=== PATIENT | male | born 1935 | race Caucasian/White ===

== ENCOUNTER 2017-06-24 10:56 | Emergency (ER) | payer OTHER, BC, MEDICARE ==
[2017-06-24] MEDS: predniSONE 20 MG TAB PO (12:51)
[2017-06-24] MEDS: ACETAMINOPH W/CODEINE #3 TAB UD PO (12:51)
== END 2017-06-24 12:55 | disposition home or self-care (01) ==
LOC: M ED 10:56
DX: R22.43 Localized swelling, mass and lump, lower limb, bilateral (principal); E78.5 Hyperlipidemia, unspecified; M19.90 Unspecified osteoarthritis, unspecified site; Z88.8 Allergy status to other drugs, medicaments and biological substances
CPT/HCPCS: 99282

== ENCOUNTER → 2018-11-20 | Outpatient (CLI) | payer OTHER ==
[~2018-11-20] MED LIST: ACET-716 PO; CAPS0.1C2 EX; PRED20TA PO; SIMV20TA2; TRAM50TA2
[2018-11-20 09:58] LABS: HEMATOCRIT 39.6 % (42.0-52.0); HEMOGLOBIN 12.7 g/dl (13.5-17.5); MEAN CORPUSCULAR HEMOGLOBIN 29.5 pg (27.0-33.0); MEAN CORPUSCULAR HGB CONC 32.1 g/dl (32.0-36.5); MEAN CORPUSCULAR VOLUME 91.9 fl (80.0-96.0); PLATELET COUNT, AUTOMATED 216 10^3/uL (150-450); RED BLOOD COUNT 4.31 10^6/uL (4.30-6.10)
--- NOTE | 2018-11-20 10:04 | REP ---
Two-view chest: 11/20/2018. Indication: Preoperative assessment. Comparison: None. Findings: Lungs are clear. There is no significant pleural effusion or pneumothorax. Cardiac silhouette is within normal limits. Degenerative sequelae of the thoracic spine are noted. 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 Impression: Clear lungs. Electronically Signed by Dorian Mejia DO 11/20/2018 09:56 A
[2018-11-20 10:11] LABS: INR 1.03; PROTHROMBIN TIME 13.2 SECONDS (11.8-14.0)
[2018-11-20 10:29] LABS: ERYTHROCYTE SEDIMENTATION RATE 22 mm/hr (0-20)
[2018-11-20 10:40] LABS: ALBUMIN 3.6 GM/DL (3.2-5.2); BILIRUBIN,TOTAL 0.7 MG/DL (0.2-1.0); CALCIUM LEVEL 8.8 MG/DL (8.8-10.2); CREATININE FOR GFR 1.54 MG/DL (0.70-1.30); GLOMERULAR FILTRATION RATE 46.4 (>35); POTASSIUM SERUM 4.2 MEQ/L (3.5-5.1); TOTAL PROTEIN 6.8 GM/DL (6.4-8.2)
--- NOTE | 2018-11-20 12:06 | ECGEPIP ---
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
== END ==
LOC: M LAB 09:00
PROVIDERS: ATTEND Orthopaedic Surgery
DX: M13.851 Other specified arthritis, right hip (principal); Z79.891 Long term (current) use of opiate analgesic; Z79.899 Other long term (current) drug therapy

== ENCOUNTER 2018-12-11 08:20 | Inpatient (IN) | payer OTHER ==
--- NOTE | 2018-12-09 16:44 | HPE ---
DATE OF ADMISSION: 12/11/2018 CHIEF COMPLAINT: Right hip pain. HISTORY OF PRESENT ILLNESS: Mr. Dumont is a pleasant 83-year-old male with progressively worsening right hip pain and stiffness. He has failed to improve with conservative treatment. He has elected for surgery for his continued symptoms. He has pain with weightbearing activities and his activities of daily living. 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 He has consented for a right total hip arthroplasty by Dr. Ean Armendariz. Medical optimization was performed by Dr. Alcala's office. ALLERGIES: Aspirin. CURRENT MEDICATIONS: Simvastatin 20 mg super B complex, move free supplement and Co-Q 10. PAST MEDICAL HISTORY: High cholesterol. PAST SURGICAL HISTORY: None. SOCIAL HISTORY: This gentleman is retired and does not smoke and occasionally drinks alcohol. FAMILY HISTORY: Non-contributory. REVIEW OF SYSTEM: This patient denies chest pain, heart palpitations, cough, wheezing, difficulty breathing and shortness of breath. He denies abdominal pain, nausea, vomiting, diarrhea or constipation. He denies recent upper respiratory infection or urinary tract infection symptoms. He does complain of persistent pain in the right hip. PHYSICAL EXAMINATION: GENERAL: He is a well nourished, well developed in no acute distress alert male patient. He ambulates with a moderate limp favoring the right lower extremity. He is not using assistive devices. VITAL SIGNS: 69 inches tall. Weight 219 pounds with a temperature of 98.6. Blood pressure 170/77, respirations 18 and heart rate 83. NECK: Supple without adenopathy or jugular venous distension. LUNGS: Clear to auscultation without rales or wheeze throughout. Heart regular rate and rhythm. ABDOMEN: Bowel sounds were present. EXTREMITIES: Examination of the hip revealed intact skin. He had minimal internal external rotation on exam due to pain and stiffness. The limb is neurovascularly intact. LABORATORY DATA: EKG showed sinus rhythm with first degree AV block at 75 beats per minute. Chest x-ray showed no acute cardiopulmonary disease processes. ProTime was 13.2, INR 1.03, CBC showed a hemoglobin of 12.7 and hematocrit 39.6, otherwise within normal limits with a SED rate of 22, glucose 112, BUN 26, creatinine 1.54 for a GFR of 46.4, sodium 141, potassium 4.2. IMPRESSION: Symptomatic osteoarthritis of the right hip. PLAN: Consented for a right total hip arthroplasty by Dr. Ean Armendariz.
[~2018-12-11] VITALS: Ht 175.3 cm; Wt 105.2 kg
[2018-12-11] MEDS: ceFAZolin SOD 2 GM in IV 1 EA IV SCH ×3 (06:00→18:24)
[~2018-12-11 08:20] MED LIST changes: +ACETAMINOPHEN 500 MG TAB PO ONE; +B COTAB3 PO; +COQ-100C5 PO; +LR 1,000 ML IV ONE; +MOVE1TAB PO; +TYLE650T35 PO; +ZOCO20TA PO; +ceFAZolin SOD 2 GM in IV 1 EA IV ONE
[2018-12-11] MEDS ORDERED: fentaNYL 100 MCG/2 ML INJECTION (J3010) As Ordered ONE (10:39)
[2018-12-11] MEDS ORDERED: PROPOFOL 200 MG/20 ML VIAL As Ordered ONE (10:39)
[2018-12-11] MEDS ORDERED: MIDAZOLAM INJ 2 MG/2 ML VIAL (J2250) As Ordered ONE (10:39)
[2018-12-11] MEDS ORDERED: dexameTHASONE 4 MG/ML 1ML VIAL (J1100) As Ordered ONE (10:39)
[2018-12-11] MEDS ORDERED: ONDANSETRON 4MG/2ML VIAL (J2405) As Ordered ONE (10:39)
[2018-12-11] MEDS ORDERED: BUPIVACAINE/DEXTROSE 0.75% 2 ML AMP As Ordered ONE (10:47)
[2018-12-11] MEDS ORDERED: ceFAZolin 1GM INJ (J0690 PER 500MG) As Ordered ONE (12:04)
[2018-12-11] MEDS ORDERED: EPINEPHrine INJ 1 MG/ML 1ML AMP As Ordered ONE (12:16)
[2018-12-11] MEDS ORDERED: ePHEDrine SULFATE 25 MG/5 ML(5MG/ML) SYRINGE As Ordered ONE (13:47)
[2018-12-11] MEDS ORDERED: PHENYLephrine HCL 500 MCG/5 ML (100MCG/ML) SYRINGE (J2370) As Ordered ONE (13:47)
[2018-12-11] MEDS ORDERED: GLYCOPYRROLATE INJ 0.2 MG/ML 2 ML VIAL As Ordered ONE (13:50)
[2018-12-11] MEDS ORDERED: LR 1,000 ML IV SCH ×2 (15:00)
[2018-12-11] MEDS ORDERED: ONDANSETRON 4MG/2ML VIAL (J2405) IV PRN (15:00)
[2018-12-11] MEDS ORDERED: ACETAMINOPHEN TAB 650MG DOSE (2X325MG) PO PRN (15:00)
[2018-12-11] MEDS ORDERED: HYDROmorphone HCL 2 MG/ML 1ML VIAL (J1170) IV PRN ×2 (15:00)
[2018-12-11] MEDS ORDERED: FLEET ENEMA PR PRN (15:00)
[2018-12-11] MEDS ORDERED: NORCO, ANEXSIA 5/325MG TABLET (HYDROcodone/ACETAMINOPHEN) As Ordered ONE (15:20)
--- NOTE | 2018-12-11 15:24 | CR ---
DATE OF CONSULTATION: 12/11/2018 PRIMARY CARE PROVIDER: Dr. Gorge Alcala This is a medical evaluation of Berto Dumont. He is an 83-year-old who underwent right total hip today. He has a past medical history of hyperlipidemia. He takes Simvastatin 20 mg daily. He had rheumatic fever in 1957 and he has been very well otherwise. Immunizations are up to date, including both Pneumovax. SURGICAL HISTORY: Right and left hand abscess, right carpal tunnel in 2014. SOCIAL HISTORY: , nonsmoker. FAMILY HISTORY: Mother had breast cancer. Daughter had breast cancer. Sister with breast cancer. MEDICATIONS: - Simvastatin 20 mg daily - tramadol - Tylenol with codeine for pain - Osteo BiFlex ALLERGIES: ASPIRIN. REVIEW OF SYSTEMS: No chest pain, shortness of breath, palpitations, epistaxis. PHYSICAL EXAMINATION: VITAL SIGNS: Per flow sheet. Blood pressure currently 126/64, pulse 60, 97% oxygen saturation. He is alert, conversant and in no distress. LUNGS: Clear. HEART: Regular rhythm. ABDOMEN: Soft, nontender. EXTREMITIES: No peripheral edema. Normal strength in the arms. Alert and conversant. IMPRESSION: 1. Hyperlipidemia. Continue simvastatin 20 mg daily. 2. Status post right hip replacement, as per orthopedics. The hospitalist group will be available for medical consultation if necessarily.
[2018-12-11] MEDS: NORCO, ANEXSIA 5/325MG TABLET (HYDROcodone/ACETAMINOPHEN) PO PRN ×2 (15:25→15:56)
[2018-12-11] MEDS: fentaNYL 100 MCG/2 ML INJECTION (J3010) IV PRN ×4 (15:25→15:43)
--- NOTE | 2018-12-11 15:25 | REP ---
Right hip: Two views. History: Hip arthroplasty placement. Findings: AP and cross-table lateral views of the right hip demonstrate right hip arthroplasty components in good position. There are lateral skin thomas. No other finding. Electronically Signed by Hair Raines MD 12/11/2018 03:16 P
[2018-12-11 16:45] VITALS: BP 146/72
[2018-12-11 17:15] VITALS: BP 150/81
[2018-12-11 18:15] VITALS: BP_SYST 144; BP_SYST 169; BP_DIAS 88; BP_DIAS 96
[2018-12-11 19:15] VITALS: BP 131/94
[2018-12-11 20:00] VITALS: BP 131/94
[2018-12-11] MEDS: SIMVASTATIN 20 MG TAB PO SCH (20:31)
[2018-12-11] MEDS: PERCOCET 5MG/325MG TAB PO PRN (20:31)
[2018-12-12 01:30] VITALS: BP 125/62
[2018-12-12] MEDS ORDERED: ONDANSETRON 4MG/2ML VIAL (J2405) IV PRN (04:00)
[2018-12-12] MEDS: PERCOCET 5MG/325MG TAB PO PRN ×2 (04:09→20:25)
[2018-12-12] MEDS ORDERED: PERC5TAB12 PO (06:02)
[2018-12-12] MEDS ORDERED: XARE10TA PO (06:02)
[2018-12-12 07:21] LABS: HEMATOCRIT 34.4 % (42.0-52.0); HEMOGLOBIN 11.1 g/dl (13.5-17.5); MEAN CORPUSCULAR HEMOGLOBIN 29.5 pg (27.0-33.0); MEAN CORPUSCULAR HGB CONC 32.3 g/dl (32.0-36.5); MEAN CORPUSCULAR VOLUME 91.5 fl (80.0-96.0); PLATELET COUNT, AUTOMATED 192 10^3/uL (150-450); RED BLOOD COUNT 3.76 10^6/uL (4.30-6.10); WHITE BLOOD COUNT 8.8 10^3/uL (4.0-10.0)
[2018-12-12 07:34] LABS: INR 1.12; PROTHROMBIN TIME 14.1 SECONDS (11.8-14.0)
--- NOTE | 2018-12-12 07:48 | RO ---
DATE OF PROCEDURE: 12/11/2018 PREPROCEDURE DIAGNOSIS: Right hip degenerative arthritis. POSTPROCEDURE DIAGNOSIS: Right hip degenerative arthritis. PROCEDURE: Right total hip arthroplasty using a size 6 high offset [place] stem with a +5 neck, 40 mm cobalt-chrome head and a 58 mm Sector Gription cup with a 40 mm neutral polyethylene liner. Prosthesis was made by [employer]h [employer]. SURGEON: Dr. Salena Armendariz. VIDEO PRODUCTION SPECIALIST: ANGELIA Hebert ANESTHESIA: Spinal. SPECIMENS: Femoral head. ESTIMATED BLOOD LOSS 200 mL. COMPLICATIONS: None. DESCRIPTION OF PROCEDURE: Antibiotics were given intravenously preoperatively. Successful spinal anesthetic was induced. He was placed in the lateral decubitus position. Right hip upper most, down leg well padded, especially the peroneal nerve. Aurora hip position was utilized. Axillary role was utilized. His right hip area was then carefully prepped, draped in the usual sterile fashion. After appropriate time-out, a longitudinal incision was made for direct anterolateral approach to the hip. Bovie cautery was used to coagulate the crossing vessels. Tensor fascia divided in line with the skin incision. Then we split the gluteus medius anterior length through the posterior two-third junction. Then underlying this, we split the gluteus minimus and anterior hip capsule, carefully dissected off the proximal femur as we externally rotated and eventually, we were able to dislocate the hip. Starting reamer was placed in the piriformis fossa followed by the canal finding reamer, then the lateralizing reamer. Then we began reaming up to a size 6. Femoral neck osteotomy was performed using the template and then we began broaching after using the box osteotome to set inversion. We broached up to a size 6. Calcar planer was utilized. We then exposed the acetabulum, performed a labral excision 360 degrees. We then began reaming beginning at 48 mm, advanced to 55. The 56 trial was a bit too loose thus I felt a 58 was necessary. Thus I reamed up to 57 and then the 58 trial was placed and using the guide to check our version and abduction and then the Gription cup was ordered. I asked or the Sector cup in case we needed screw fixation. We irrigated copiously and placed the cup using the extramedullary alignment jig to estimate are version and abduction and the impacted the cup. Had good fixation and no screw fixation supplementally was felt necessary. Central hole eliminator was placed then the 40 mm neutral liner was placed and checked to be sure it was seated properly. Then the trial broach was placed once again. Then we trialled first with a 1.5 standard neck and the cup seemed to be in good position but we needed a little bit more length and I felt, given he was quite lateralized and we deepened him quite a bit, I thought the lateral offset would be more biomechanically favorable for him. Thus, I trialled with a high offset and then with a +5 neck. He had excellent stability with flexion and internal rotation and extension external rotation and minimal soft tissue telescoping. Thus, I felt this was the appropriate sized components to use. His right leg was shorter in the preop holding area compared to the left. This was +5 and I think it would help that. We removed all the trials, copiously pulsatile lavaged and irrigated out the joint and then placed the real #6 high offset stem followed by the 40 mm head with a +5 neck length onto the trunion of the stem after thoroughly drying this. Then reduced the hip. We copiously irrigated again and closed the hip capsule and gluteus minimus back anatomically with interrupted #1-0 PDS sutures. Gluteus medius was closed in layers back anatomically with interrupted #1-0 PDS sutures irrigating between layers again. Then closed the tensor fascia with a combination of #1-0 PDS suture and a running #1-0 Stratafix. Irrigated between layers again and closed the deep subdermal tissues with interrupted #2-0 PDS sutures. Skin was closed with thomas and covered by an Optifoam dry sterile bulky dressing. He was then turned supine and transferred to the recovery room in stable condition. There were no intraoperative complications. Ms. Lucia Carrington was critical to the success of this difficult surgery. He had a vary large leg. He is a large heavy man and she was needed to help me by reducing and dislocating the hip several times throughout the operation. Help with appropriate soft tissue retraction. Helped to close the wound. Helped to prepare the patient for surgery amongst many other tasks to allow me to perform the operating smoothly, efficiently and safely.
[2018-12-12 07:54] LABS: CALCIUM LEVEL 8.6 MG/DL (8.8-10.2); CREATININE FOR GFR 1.58 MG/DL (0.70-1.30); POTASSIUM SERUM 4.9 MEQ/L (3.5-5.1)
[2018-12-12] MEDS: SENOKOT S TAB PO SCH ×2 (08:04→20:25)
[2018-12-12] MEDS: MOM 30ML SUSPENSION UDC PO SCH (08:04)
[2018-12-12] MEDS: MIRALAX *UNIT DOSE* 17GM PACKET PO SCH (08:04)
[2018-12-12 11:20] VITALS: BP 109/64
[2018-12-12 14:26] VITALS: BP 128/72
[2018-12-12] MEDS: RIVAROXABAN 10 MG TAB (XARELTO) PO SCH (17:50)
[2018-12-12] MEDS: SIMVASTATIN 20 MG TAB PO SCH (20:25)
[2018-12-12 22:01] VITALS: BP 139/67
[2018-12-13 06:00] VITALS: BP 135/72
[2018-12-13 06:07] LABS: HEMATOCRIT 32.8 % (42.0-52.0); HEMOGLOBIN 10.7 g/dl (13.5-17.5); MEAN CORPUSCULAR HEMOGLOBIN 29.9 pg (27.0-33.0); MEAN CORPUSCULAR HGB CONC 32.6 g/dl (32.0-36.5); MEAN CORPUSCULAR VOLUME 91.6 fl (80.0-96.0); PLATELET COUNT, AUTOMATED 163 10^3/uL (150-450); RED BLOOD COUNT 3.58 10^6/uL (4.30-6.10); WHITE BLOOD COUNT 11.3 10^3/uL (4.0-10.0)
[2018-12-13 06:18] LABS: INR 1.63; PROTHROMBIN TIME 19.1 SECONDS (11.8-14.0)
[2018-12-13 06:29] LABS: CALCIUM LEVEL 8.9 MG/DL (8.8-10.2); CREATININE FOR GFR 1.68 MG/DL (0.70-1.30); POTASSIUM SERUM 4.3 MEQ/L (3.5-5.1)
[2018-12-13] MEDS: PERCOCET 5MG/325MG TAB PO PRN ×2 (06:55→17:08)
[2018-12-13] MEDS: MIRALAX *UNIT DOSE* 17GM PACKET PO SCH (08:43)
[2018-12-13] MEDS: MOM 30ML SUSPENSION UDC PO SCH (08:43)
[2018-12-13] MEDS: SENOKOT S TAB PO SCH ×2 (08:44→20:51)
[2018-12-13 14:55] VITALS: BP 128/78
--- NOTE | 2018-12-13 16:32 | IPNPDOC ---
Date Seen The patient was seen on 12/13/18. Progress Note SUBJECTIVE: 83-year-old male, past medical history of chronic kidney disease, was admitted for right total hip replacement. He is currently resting comfortably in bed, postop day #2, without any complaints at this time, remains in the hospital because he has not been cleared by physical therapy. During his physical therapy session today. He had a vasovagal episode where he was presyncopal/unresponsive for/pale for about 30-60 seconds, no postictal confusion, returned completely back to baseline. That was the only episode he had during his hospitalization, currently completely is symptomatically without any complaints at this time. He denies any shortness of breath, chest pain, nausea, vomiting, abdominal pain or diarrhea. 10 point review of system was negative except for above PHYSICAL EXAMINATION: VITAL SIGNS: Please see below. GENERAL: No distress HEENT: Normocephalic, atraumatic, moist mucous membranes NECK: Supple CARDIOVASCULAR EXAMINATION: S1, S2, no murmurs RESPIRATORY EXAMINATION: Clear to auscultation, no wheezing ABDOMINAL EXAMINATION: Soft, nontender, nondistended, positive bowel sounds EXTREMITIES: Right lower extremity range of motion limited due to pain, right knee warm to touch with minimal swelling. SKIN: No rash NEUROLOGICAL EXAMINATION: Alert and oriented 3, no focal deficits PSYCHIATRIC EXAMINATION: Calm and cooperative LABORATORY DATA, IMAGING STUDIES, MICROBIOLOGY: Please see below. Echocardiogram: Ordered. DVT prophylaxis ordered?: Yes ASSESSMENT AND PLAN: 83-year-old male with past medical history of chronic kidney disease is admitted status post right total hip replacement. PROBLEMS: 1. Right total hip arthroplasty: As per surgery, DVT prophylaxis with Xarelto, continue physical therapy. 2. Chronic kidney disease: Baseline Creatinine unknown, will trend. 3. Vasovagal syncope:. Patient reports severe hip/knee pain while ambulating, likely had vasovagal episode, TTE ordered. DVT prophylaxis: Xarelto GI prophylaxis: Not needed. VS, I&O, 24H, Fishbone Vital Signs/I&O Vital Signs Date Time Temp Pulse Resp B/P (MAP) Pulse Ox O2 Delivery O2 Flow Rate FiO2 12/13/18 14:55 97.4 107 18 128/78 (95) 94 Room Air I&O- Last 24 Hours up to 6 AM 12/13/18 05:59 Intake Total 1200 ml Output Total 400 ml Balance 800 ml Laboratory Data 24H LABS Laboratory Tests 2 12/13/18 05:47: Nucleated Red Blood Cells % (auto) 0.0, Prothrombin Time 19.1H, Prothromb Time International Ratio 1.63, Anion Gap 4L, Glomerular Filtration Rate 42.0, Calcium Level 8.9 12/13/18 14:10: Bedside Glucose (Misc Panel) 117H CBC/BMP Laboratory Tests 12/13/18 05:47 HOLLY SINGLETON MD Dec 13, 2018 16:32
[2018-12-13] MEDS: RIVAROXABAN 10 MG TAB (XARELTO) PO SCH (17:07)
[2018-12-13 20:27] VITALS: BP 132/73
[2018-12-13] MEDS: SIMVASTATIN 20 MG TAB PO SCH (20:51)
[2018-12-14 06:00] VITALS: BP 133/71
[2018-12-14] MEDS: PERCOCET 5MG/325MG TAB PO PRN ×2 (06:53→15:15)
[2018-12-14 06:57] LABS: HEMATOCRIT 30.7 % (42.0-52.0); HEMOGLOBIN 9.8 g/dl (13.5-17.5); MEAN CORPUSCULAR HEMOGLOBIN 29.4 pg (27.0-33.0); MEAN CORPUSCULAR HGB CONC 31.9 g/dl (32.0-36.5); MEAN CORPUSCULAR VOLUME 92.2 fl (80.0-96.0); PLATELET COUNT, AUTOMATED 163 10^3/uL (150-450); RED BLOOD COUNT 3.33 10^6/uL (4.30-6.10); WHITE BLOOD COUNT 10.7 10^3/uL (4.0-10.0)
[2018-12-14 07:22] LABS: CALCIUM LEVEL 8.8 MG/DL (8.8-10.2); CREATININE FOR GFR 1.65 MG/DL (0.70-1.30); GLOMERULAR FILTRATION RATE 42.8 (>35); MAGNESIUM LEVEL 2.1 MG/DL (1.8-2.4); PHOSPHORUS LEVEL 2.6 MG/DL (2.5-4.9); POTASSIUM SERUM 4.2 MEQ/L (3.5-5.1)
[2018-12-14] MEDS: MOM 30ML SUSPENSION UDC PO SCH (08:44)
[2018-12-14] MEDS: MIRALAX *UNIT DOSE* 17GM PACKET PO SCH (08:44)
[2018-12-14] MEDS: SENOKOT S TAB PO SCH (08:44)
--- NOTE | 2018-12-14 11:11 | REP ---
A P and lateral chest: Comparison is the PA and lateral chest dated 11/20/2018. There is elevation of the right hemidiaphragm, unchanged, likely eventration. The lung wheeler otherwise clear. Cardiac size is magnified by AP positioning but unchanged from the prior study, upper normal. The eliana, mediastinum, skeletal structures are unremarkable. Impression: No acute cardiopulmonary findings. Electronically Signed by Dharmesh Camacho MD 12/14/2018 11:02 A
[2018-12-14 14:00] VITALS: BP 101/75
== END 2018-12-14 15:15 | disposition home health service (06) | DRG 470 ==
LOC: M OR 08:20 → M MS5PR 16:50
PROVIDERS: ADMIT Orthopaedic Surgery; ATTEND Orthopaedic Surgery
PROC: 0SR902A Replacement of Right Hip Joint with Metal on Polyethylene Synthetic Substitute, Uncemented, Open Approach (ICD-10-PCS; principal; 2018-12-11 12:20)
DX: M16.11 Unilateral primary osteoarthritis, right hip (principal); Z79.899 Other long term (current) drug therapy; E78.5 Hyperlipidemia, unspecified

== ENCOUNTER → 2020-10-20 | Outpatient (REF) | payer MEDICARE, OTHER ==
[~2020-10-20] MED LIST changes: +ACET650T61 PO; -ACETAMINOPHEN 500 MG TAB PO ONE; -LR 1,000 ML IV ONE; +PERC5TAB12 PO; -SIMV20TA2; +SIMV20TA22; -TYLE650T35 PO; +XARE10TA PO; -ceFAZolin SOD 2 GM in IV 1 EA IV ONE
== END ==
LOC: M LAB REF 14:19
PROVIDERS: ATTEND Dermatology
DX: C44.519 Basal cell carcinoma of skin of other part of trunk (principal)

== ENCOUNTER → 2020-11-02 | Outpatient (REF) | payer MEDICARE | LOC: M LAB REF 16:13 | PROVIDERS: ATTEND Dermatology | DX: L53.9 Erythematous condition, unspecified (principal) ==

== ENCOUNTER → 2021-06-27 | Outpatient (REF) | payer MEDICARE ==
[2021-06-28 13:55] LABS: ALBUMIN 4.12 GM/DL (3.29-5.55); ALBUMIN % 58.9 % (55.8-66.1); ALPHA-1-GLOBULIN % 4.2 % (2.9-4.9); ALPHA-1-GLOBULINS 0.29 GM/DL (0.17-0.41); ALPHA-2-GLOBULINS % 12.8 % (7.1-11.8); BETA-1-GLOBULINS 0.36 GM/DL (0.28-0.60); BETA-1-GLOBULINS % 5.2 % (4.7-7.2); BETA-2-GLOBULINS 0.37 GM/DL (0.19-0.55); BETA-2-GLOBULINS % 5.3 % (3.2-6.5); GAMMA GLOBULIN % 13.6 % (11.1-18.8); GAMMA GLOBULINS 0.95 GM/DL (0.65-1.58)
== END ==
LOC: M LAB REF 16:43
PROVIDERS: ATTEND Internal Medicine Nephrology
DX: N18.32 Chronic kidney disease, stage 3b (principal)

== ENCOUNTER → 2021-07-14 | Outpatient (CLI) | payer MEDICARE | LOC: M RAD 10:15 | PROVIDERS: ATTEND Internal Medicine Nephrology | DX: N18.32 Chronic kidney disease, stage 3b (principal); N28.1 Cyst of kidney, acquired ==

== ENCOUNTER → 2021-10-04 | Outpatient (REF) | payer MEDICARE ==
[~2021-10-04] MED LIST changes: +SIMV-253 PO; -ZOCO20TA PO
== END ==
LOC: M SFHCDERM 16:32
PROVIDERS: ATTEND Dermatology
DX: L08.9 Local infection of the skin and subcutaneous tissue, unspecified (principal)

== ENCOUNTER → 2021-10-18 | Outpatient (REF) | payer MEDICARE | LOC: M SFHCDERM 17:23 | PROVIDERS: ATTEND Dermatology | DX: T14.90XD Injury, unspecified, subsequent encounter (principal) ==

== ENCOUNTER → 2021-11-09 | Outpatient (CLI) | payer MEDICARE ==
[~2021-11-09] MED LIST changes: +PROHANCE 279.3MG/ML 5ML VIAL As Ordered ONE
== END ==
LOC: M RAD 12:28
PROVIDERS: ATTEND Internal Medicine Nephrology
DX: N28.1 Cyst of kidney, acquired (principal)
CPT/HCPCS: 74183; A9576

== ENCOUNTER 2022-03-04 13:56 | Inpatient (IN) | payer MEDICARE ==
[~2022-03-04] VITALS: Ht 175.3 cm; Wt 110.6 kg
[~2022-03-04 13:56] MED LIST changes: -PROHANCE 279.3MG/ML 5ML VIAL As Ordered ONE
[2022-03-04 14:36] LABS: BASO % 0.3 % (0.0-1.0); EOS # 0.1 10^3/uL (0.0-0.5); EOS % 0.9 % (0.0-3.0); HEMATOCRIT 40.6 % (42.0-52.0); HEMOGLOBIN 12.9 g/dl (13.5-17.5); LYMPH # 1.3 10^3/uL (1.5-5.0); LYMPH % 17.9 % (24.0-44.0); MEAN CORPUSCULAR HEMOGLOBIN 29.7 pg (27.0-33.0); MEAN CORPUSCULAR HGB CONC 31.8 g/dl (32.0-36.5); MEAN CORPUSCULAR VOLUME 93.3 fl (80.0-96.0); MONO # 0.5 10^3/uL (0.0-0.8); MONO % 6.9 % (2.0-8.0); NEUTROPHILS # 5.4 10^3/uL (1.5-8.5); NEUTROPHILS % 73.5 % (36.0-66.0); PLATELET COUNT, AUTOMATED 190 10^3/uL (150-450); RED BLOOD COUNT 4.35 10^6/uL (4.30-6.10); WHITE BLOOD COUNT 7.4 10^3/uL (4.0-10.0)
[2022-03-04 14:51] LABS: INR 0.95; PROTHROMBIN TIME 12.9 SECONDS (12.5-14.5)
[2022-03-04] MEDS ORDERED: TERA2CAP3 PO (15:00)
[2022-03-04 15:04] LABS: CALCIUM LEVEL 8.6 MG/DL (8.3-10.6); CREATININE FOR GFR 1.94 MG/DL (0.70-1.30); GLOMERULAR FILTRATION RATE 35.2 (>35); MAGNESIUM LEVEL 1.8 MG/DL (1.8-2.4); POTASSIUM SERUM 4.7 MMOL/L (3.5-5.1)
[2022-03-04 15:07] LABS: THYROID STIMULATING HORMONE 4.104 uIU/ML (0.55-4.78)
[2022-03-04 15:37] LABS: RSV AMPLIFICATION NEGATIVE (NEGATIVE)
[2022-03-04] MEDS ORDERED: B-COTAB4 PO (17:29)
[2022-03-04] MEDS ORDERED: TERA5CAP3 PO (17:29)
[2022-03-04] MEDS ORDERED: HOME MED LIST COMPLETE! XX SCH (17:35)
[2022-03-04] MEDS ORDERED: MOM 30ML SUSPENSION UDC PO PRN (18:50)
[2022-03-04] MEDS: HEPARIN SOD (PORCINE) 5000UNITS/ML 1ML VIAL/SYRINGE SC SCH (21:08)
[2022-03-05] VITALS (7 sets, daily range): BP systolic 128–162; BP diastolic 63–76
[2022-03-05 05:31] LABS: ALBUMIN 3.3 G/DL (3.2-5.2); BILIRUBIN,TOTAL 0.5 MG/DL (0.3-1.2); CALCIUM LEVEL 8.2 MG/DL (8.3-10.6); CREATININE FOR GFR 2.01 MG/DL (0.70-1.30); GLOMERULAR FILTRATION RATE 33.8 (>35); POTASSIUM SERUM 5.1 MMOL/L (3.5-5.1); TOTAL PROTEIN 6.2 G/DL (5.7-8.2)
[2022-03-05] MEDS: NS 1,000 ML IV SCH ×2 (07:59→18:03)
[2022-03-05] MEDS: HEPARIN SOD (PORCINE) 5000UNITS/ML 1ML VIAL/SYRINGE SC SCH ×2 (08:01→20:41)
[2022-03-05] MEDS: SIMVASTATIN 20 MG TAB PO SCH (20:42)
[2022-03-06] VITALS (8 sets, daily range): BP systolic 146–192; BP diastolic 68–98
[2022-03-06] MEDS: NS 1,000 ML IV SCH ×2 (04:11→14:07)
[2022-03-06 04:45] LABS: HEMATOCRIT 36.1 % (42.0-52.0); HEMOGLOBIN 11.7 g/dl (13.5-17.5); MEAN CORPUSCULAR HGB CONC 32.4 g/dl (32.0-36.5); MEAN CORPUSCULAR VOLUME 92.6 fl (80.0-96.0); PLATELET COUNT, AUTOMATED 184 10^3/uL (150-450); WHITE BLOOD COUNT 7.5 10^3/uL (4.0-10.0)
[2022-03-06 05:20] LABS: ALBUMIN 3.2 G/DL (3.2-5.2); BILIRUBIN,TOTAL 0.6 MG/DL (0.3-1.2); CALCIUM LEVEL 8.5 MG/DL (8.3-10.6); CREATININE FOR GFR 1.74 MG/DL (0.70-1.30); GLOMERULAR FILTRATION RATE 39.9 (>35); MAGNESIUM LEVEL 1.9 MG/DL (1.8-2.4); POTASSIUM SERUM 4.9 MMOL/L (3.5-5.1); TOTAL PROTEIN 5.7 G/DL (5.7-8.2)
[2022-03-06] MEDS: HEPARIN SOD (PORCINE) 5000UNITS/ML 1ML VIAL/SYRINGE SC SCH ×2 (08:20→21:26)
[2022-03-06] MEDS ORDERED: hydrALAZINE 20MG/ML 1ML VIAL IV ONE (16:35)
[2022-03-06] MEDS: SIMVASTATIN 20 MG TAB PO SCH (21:25)
[2022-03-07] VITALS (17 sets, daily range): BP systolic 128–180; BP diastolic 60–80
[2022-03-07] MEDS: NS 1,000 ML IV SCH ×3 (00:23→14:42)
[2022-03-07 05:04] LABS: HEMOGLOBIN 11.2 g/dl (13.5-17.5); MEAN CORPUSCULAR HEMOGLOBIN 29.6 pg (27.0-33.0); MEAN CORPUSCULAR VOLUME 92.3 fl (80.0-96.0); PLATELET COUNT, AUTOMATED 172 10^3/uL (150-450); RED BLOOD COUNT 3.79 10^6/uL (4.30-6.10); WHITE BLOOD COUNT 7.1 10^3/uL (4.0-10.0)
[2022-03-07 05:30] LABS: BILIRUBIN,TOTAL 0.8 MG/DL (0.3-1.2); CALCIUM LEVEL 8.5 MG/DL (8.3-10.6); CREATININE FOR GFR 1.53 MG/DL (0.70-1.30); GLOMERULAR FILTRATION RATE 46.3 (>35); POTASSIUM SERUM 4.5 MMOL/L (3.5-5.1); TOTAL PROTEIN 5.7 G/DL (5.7-8.2)
[2022-03-07] MEDS ORDERED: NS 1,000 ML IV SCH (06:00)
[2022-03-07] MEDS: hydrALAZINE 20MG/ML 1ML VIAL IV PRN (08:44)
[2022-03-07] MEDS ORDERED: hydrALAZINE 20MG/ML 1ML VIAL IV ONE (12:45)
[2022-03-07] MEDS ORDERED: MAG SULF 1GM/100ML (MAG RUN) 1 GM in IV 1 EA IV ONE (13:00)
[2022-03-07] MEDS ORDERED: ISOVUE-300 61% 100ML VIAL As Ordered ONE (13:14)
[2022-03-07] MEDS ORDERED: LIDOCAINE 1% SDV 30ML VIAL As Ordered ONE (13:14)
[2022-03-07] MEDS ORDERED: MUPIROCIN 2% OINT 22 GM TUBE As Ordered ONE (13:14)
[2022-03-07] MEDS ORDERED: ceFAZolin 2 GM/D5W 50 ML IV BAG As Ordered ONE (13:18)
[2022-03-07 13:48] LABS: CK-MB VALUE MASS < 1.0 NG/ML (<3.6); MAGNESIUM LEVEL 1.6 MG/DL (1.8-2.4); POTASSIUM SERUM 4.4 MMOL/L (3.5-5.1)
[2022-03-07 13:49] LABS: CPK CREATINE PHOSPHOKINASE 63 U/L (46-171); MB/CK RELATIVE INDEX 1.58 (< OR =4)
[2022-03-07] MEDS ORDERED: cloNIDine 0.1MG TABLET PO ONE (14:00)
[2022-03-07] MEDS ORDERED: NITROGLYCERIN 2% OINT 1 GM *U/D* PKT TOP SCH (14:30)
[2022-03-07] MEDS ORDERED: ceFAZolin SOD 2 GM in IV 1 EA IV ONE (15:00)
[2022-03-07] MEDS ORDERED: fentaNYL 100 MCG/2 ML INJECTION As Ordered ONE (15:30)
[2022-03-07] MEDS ORDERED: ACETAMINOPHEN TAB 650MG DOSE (2X325MG) PO PRN (19:15)
[2022-03-07] MEDS: SIMVASTATIN 20 MG TAB PO SCH (20:21)
[2022-03-07] MEDS: ASCORBIC ACID 250 MG TAB PO SCH (20:22)
[2022-03-08] VITALS: BP 164/76
[2022-03-08 04:00] VITALS: BP 160/92
[2022-03-08] MEDS ORDERED: FAMOTIDINE 20 MG TAB PO ONE (04:00)
[2022-03-08] MEDS: hydrALAZINE 20MG/ML 1ML VIAL IV PRN (05:22)
[2022-03-08 06:04] VITALS: BP 142/62
[2022-03-08] MEDS ORDERED: PERCOCET 5MG/325MG TAB PO PRN (07:15)
[2022-03-08] MEDS ORDERED: SENOKOT S TAB PO PRN (07:15)
[2022-03-08] MEDS ORDERED: MAG SULF 1GM/100ML (MAG RUN) 1 GM in IV 1 EA IV ONE (07:15)
[2022-03-08] MEDS ORDERED: MIRALAX *UNIT DOSE* 17GM PACKET PO PRN (07:15)
[2022-03-08 07:33] LABS: BASO % 0.1 % (0.0-1.0); EOS % 0.1 % (0.0-3.0); HEMATOCRIT 38.2 % (42.0-52.0); HEMOGLOBIN 12.3 g/dl (13.5-17.5); LYMPH # 1.1 10^3/uL (1.5-5.0); LYMPH % 11.3 % (24.0-44.0); MEAN CORPUSCULAR HEMOGLOBIN 29.6 pg (27.0-33.0); MEAN CORPUSCULAR HGB CONC 32.2 g/dl (32.0-36.5); MONO # 0.7 10^3/uL (0.0-0.8); MONO % 7.7 % (2.0-8.0); NEUTROPHILS # 7.6 10^3/uL (1.5-8.5); NEUTROPHILS % 80.5 % (36.0-66.0); PLATELET COUNT, AUTOMATED 180 10^3/uL (150-450); RED BLOOD COUNT 4.15 10^6/uL (4.30-6.10); WHITE BLOOD COUNT 9.4 10^3/uL (4.0-10.0)
[2022-03-08 07:58] LABS: CALCIUM LEVEL 8.4 MG/DL (8.3-10.6); CREATININE FOR GFR 1.42 MG/DL (0.70-1.30); GLOMERULAR FILTRATION RATE 50.4 (>35); MAGNESIUM LEVEL 1.6 MG/DL (1.8-2.4); POTASSIUM SERUM 4.9 MMOL/L (3.5-5.1)
[2022-03-08 08:00] VITALS: BP 147/67
[2022-03-08] MEDS: ASCORBIC ACID 250 MG TAB PO SCH (08:40)
[2022-03-08 08:41] VITALS: BP 147/67
[2022-03-08] MEDS ORDERED: BISACODYL 10MG SUPP PR SCH (09:00)
[2022-03-08] MEDS ORDERED: ISOSORBIDE DIN. (ISORDIL) 30 MG TAB PO SCH (09:00)
[2022-03-08] MEDS ORDERED: SELF1KIT MC (09:54)
[2022-03-08] MEDS ORDERED: ISOS30TAB PO ×2 (09:54→09:55)
[2022-03-08 12:00] VITALS: BP 113/62
== END 2022-03-08 12:27 | disposition home health service (06) | DRG 244 ==
LOC: M ED 13:56 → EDBD 13:56 → M ED INP 13:57 → ENRESERV 23:33 → M PCU 03-05 00:10 → OBSVTOIN 03-05 07:23
PROVIDERS: ADMIT Internal Medicine; ATTEND General Practice
PROC: 0JH606Z Insertion of Pacemaker, Dual Chamber into Chest Subcutaneous Tissue and Fascia, Open Approach (ICD-10-PCS; 2022-03-07)
PROC: 02HK3JZ Insertion of Pacemaker Lead into Right Ventricle, Percutaneous Approach (ICD-10-PCS; 2022-03-07)
PROC: 02H63JZ Insertion of Pacemaker Lead into Right Atrium, Percutaneous Approach (ICD-10-PCS; principal; 2022-03-07 15:00)
DX: I44.1 Atrioventricular block, second degree (principal); R55 Syncope and collapse; N18.30 Chronic kidney disease, stage 3 unspecified; E78.5 Hyperlipidemia, unspecified; I12.9 Hypertensive chronic kidney disease with stage 1 through stage 4 chronic kidney disease, or unspecified chronic kidney disease; Z88.6 Allergy status to analgesic agent; Z96.641 Presence of right artificial hip joint

== ENCOUNTER → 2022-03-15 | Outpatient (CLI) | payer MEDICARE ==
[~2022-03-15] MED LIST changes: +B-COTAB4 PO; +ISOS30TAB PO; +SELF1KIT MC; +TERA2CAP3 PO; +TERA5CAP3 PO
== END ==
LOC: M WHC 10:49
PROVIDERS: ATTEND Physician Assistant
DX: I82.622 Acute embolism and thrombosis of deep veins of left upper extremity (principal); R60.0 Localized edema; Z95.0 Presence of cardiac pacemaker

== ENCOUNTER 2022-03-30 00:02 | Observation (INO) | payer MEDICARE ==
[~2022-03-30] VITALS: Ht 175.3 cm; Wt 113.6 kg
[2022-03-30 01:02] LABS: BASO % 0.4 % (0.0-1.0); EOS # 0.1 10^3/uL (0.0-0.5); EOS % 1.1 % (0.0-3.0); HEMATOCRIT 34.3 % (42.0-52.0); HEMOGLOBIN 10.9 g/dl (13.5-17.5); LYMPH # 1.4 10^3/uL (1.5-5.0); LYMPH % 17.7 % (24.0-44.0); MEAN CORPUSCULAR HEMOGLOBIN 29.6 pg (27.0-33.0); MEAN CORPUSCULAR HGB CONC 31.8 g/dl (32.0-36.5); MEAN CORPUSCULAR VOLUME 93.2 fl (80.0-96.0); MONO # 0.6 10^3/uL (0.0-0.8); MONO % 7.5 % (2.0-8.0); NEUTROPHILS # 5.9 10^3/uL (1.5-8.5); NEUTROPHILS % 73.1 % (36.0-66.0); PLATELET COUNT, AUTOMATED 226 10^3/uL (150-450); RED BLOOD COUNT 3.68 10^6/uL (4.30-6.10)
[2022-03-30 01:33] LABS: ALBUMIN 3.2 G/DL (3.2-5.2); BILIRUBIN,TOTAL 0.4 MG/DL (0.3-1.2); CALCIUM LEVEL 8.9 MG/DL (8.3-10.6); CK-MB VALUE MASS 1.1 NG/ML (<3.6); CREATININE FOR GFR 2.09 MG/DL (0.70-1.30); GLOMERULAR FILTRATION RATE 32.3 (>35); POTASSIUM SERUM 4.7 MMOL/L (3.5-5.1); THYROID STIMULATING HORMONE 3.006 uIU/ML (0.55-4.78); TOTAL PROTEIN 6.1 G/DL (5.7-8.2)
[2022-03-30 01:34] LABS: MB/CK RELATIVE INDEX 3.33 (< OR =4)
[2022-03-30] MEDS ORDERED: NS 1,000 ML IV ONE (01:35)
[2022-03-30 02:28] LABS: RSV AMPLIFICATION NEGATIVE (NEGATIVE)
[2022-03-30] MEDS ORDERED: ISOS30TAB PO (03:23)
[2022-03-30] MEDS ORDERED: XARE15TA PO (03:23)
[2022-03-30] MEDS ORDERED: HOME MED LIST COMPLETE! XX SCH (03:25)
[2022-03-30] MEDS ORDERED: NS 1,000 ML IV SCH (04:10)
[2022-03-30] MEDS ORDERED: ACETAMINOPHEN TAB 650MG DOSE (2X325MG) PO PRN (04:10)
[2022-03-30 06:52] LABS: BASO % 0.5 % (0.0-1.0); EOS # 0.1 10^3/uL (0.0-0.5); EOS % 1.2 % (0.0-3.0); HEMOGLOBIN 10.7 g/dl (13.5-17.5); LYMPH # 1.3 10^3/uL (1.5-5.0); LYMPH % 22.8 % (24.0-44.0); MEAN CORPUSCULAR HEMOGLOBIN 29.7 pg (27.0-33.0); MEAN CORPUSCULAR HGB CONC 31.5 g/dl (32.0-36.5); MEAN CORPUSCULAR VOLUME 94.4 fl (80.0-96.0); MONO # 0.5 10^3/uL (0.0-0.8); MONO % 8.8 % (2.0-8.0); NEUTROPHILS # 3.8 10^3/uL (1.5-8.5); NEUTROPHILS % 66.3 % (36.0-66.0); PLATELET COUNT, AUTOMATED 188 10^3/uL (150-450); WHITE BLOOD COUNT 5.7 10^3/uL (4.0-10.0)
[2022-03-30 07:10] LABS: PERCENT SATURATION 14.8 % (19.7-50.0)
[2022-03-30 07:12] LABS: FERRITIN 135.9 NG/ML (10.5-307.3)
[2022-03-30 07:14] LABS: FOLATE 22.1 NG/ML (>5.4)
[2022-03-30] MEDS: FERROUS SULFATE 300MG/5ML UDC LIQUID PO SCH ×2 (08:38→22:26)
[2022-03-30] MEDS: LIDOCAINE 5% (LIDODERM) PATCH TD SCH (08:38)
[2022-03-30] MEDS: RIVAROXABAN 15MG TAB (XARELTO) PO SCH ×2 (08:38→17:59)
[2022-03-30] MEDS ORDERED: RIVAROXABAN 15MG TAB (XARELTO) PO SCH (09:00)
[2022-03-30 11:15] VITALS: BP 145/62
[2022-03-30 11:47] LABS: CALCIUM LEVEL 8.4 MG/DL (8.3-10.6); CREATININE FOR GFR 1.93 MG/DL (0.70-1.30); GLOMERULAR FILTRATION RATE 35.4 (>35); POTASSIUM SERUM 4.9 MMOL/L (3.5-5.1)
[2022-03-30 12:13] LABS: HEMATOCRIT 35.2 % (42.0-52.0); HEMOGLOBIN 11.1 g/dl (13.5-17.5)
[2022-03-30 14:54] LABS: CALCIUM LEVEL 8.5 MG/DL (8.3-10.6); CREATININE FOR GFR 1.7 MG/DL (0.70-1.30); POTASSIUM SERUM 4.8 MMOL/L (3.5-5.1)
[2022-03-30 18:38] LABS: MB/CK RELATIVE INDEX 2.94 (< OR =4)
[2022-03-30 18:48] LABS: CK-MB VALUE MASS < 1.0 NG/ML (<3.6)
[2022-03-30 18:51] LABS: CPK CREATINE PHOSPHOKINASE 33 U/L (46-171); MB/CK RELATIVE INDEX 3.03 (< OR =4)
[2022-03-30 19:17] VITALS: BP_SYST 157; BP_SYST 158; BP_SYST 160; BP_DIAS 83; BP_DIAS 90; BP_DIAS 93
[2022-03-30] MEDS ORDERED: SIMVASTATIN 20 MG TAB PO SCH (21:00)
[2022-03-30] MEDS ORDERED: TERAZOSIN 5MG CAPSULE PO SCH (21:00)
[2022-03-30 22:06] VITALS: BP 142/74
[2022-03-31 06:00] VITALS: BP_SYST 154; BP_SYST 158; BP_SYST 168; BP_DIAS 80; BP_DIAS 82; BP_DIAS 83
[2022-03-31 07:07] LABS: INR 1.55; PROTHROMBIN TIME 18.9 SECONDS (12.5-14.5)
[2022-03-31 07:47] LABS: CALCIUM LEVEL 8.2 MG/DL (8.3-10.6); CREATININE FOR GFR 1.6 MG/DL (0.70-1.30); MAGNESIUM LEVEL 1.7 MG/DL (1.8-2.4); POTASSIUM SERUM 4.8 MMOL/L (3.5-5.1)
[2022-03-31] MEDS ORDERED: MAGNESIUM OXIDE 400MG TAB (MAG-OX) PO ONE (08:00)
[2022-03-31] MEDS: LIDOCAINE 5% (LIDODERM) PATCH TD SCH (08:58)
[2022-03-31] MEDS: FERROUS SULFATE 300MG/5ML UDC LIQUID PO SCH (08:58)
[2022-03-31] MEDS ORDERED: ISOSORBIDE DIN. (ISORDIL) 30 MG TAB PO SCH (09:00)
[2022-03-31] MEDS: RIVAROXABAN 15MG TAB (XARELTO) PO SCH (09:00)
[2022-03-31 09:02] VITALS: BP 150/89
[2022-03-31 09:12] LABS: BASO % 0.5 % (0.0-1.0); EOS # 0.2 10^3/uL (0.0-0.5); EOS % 2.3 % (0.0-3.0); HEMATOCRIT 35.1 % (42.0-52.0); HEMOGLOBIN 11.5 g/dl (13.5-17.5); LYMPH # 1.8 10^3/uL (1.5-5.0); MEAN CORPUSCULAR HEMOGLOBIN 30.1 pg (27.0-33.0); MEAN CORPUSCULAR HGB CONC 32.8 g/dl (32.0-36.5); MEAN CORPUSCULAR VOLUME 91.9 fl (80.0-96.0); MONO # 0.5 10^3/uL (0.0-0.8); MONO % 7.2 % (2.0-8.0); NEUTROPHILS % 61.5 % (36.0-66.0); PLATELET COUNT, AUTOMATED 206 10^3/uL (150-450); RED BLOOD COUNT 3.82 10^6/uL (4.30-6.10); WHITE BLOOD COUNT 6.5 10^3/uL (4.0-10.0)
[2022-03-31] MEDS ORDERED: FERR325T3 PO (10:27)
== END 2022-03-31 12:05 | disposition home health service (06) ==
LOC: M ED 00:02 → M ED INP 00:03 → INTOOBSV 04:08 → UNDOADMOB 04:08 → ENRESERV 10:22 → M ED INP 11:02 → M MSPAV 11:02
PROVIDERS: ADMIT Internal Medicine; ATTEND Internal Medicine
DX: I44.1 Atrioventricular block, second degree (principal); E78.5 Hyperlipidemia, unspecified; I12.9 Hypertensive chronic kidney disease with stage 1 through stage 4 chronic kidney disease, or unspecified chronic kidney disease; N18.30 Chronic kidney disease, stage 3 unspecified; N17.9 Acute kidney failure, unspecified; Z86.73 Personal history of transient ischemic attack (TIA), and cerebral infarction without residual deficits; D64.9 Anemia, unspecified; Z95.0 Presence of cardiac pacemaker; Z79.01 Long term (current) use of anticoagulants; Z88.8 Allergy status to other drugs, medicaments and biological substances; Z79.899 Other long term (current) drug therapy; Z86.718 Personal history of other venous thrombosis and embolism
CPT/HCPCS: 36415; 70450; 71045; 80048; 80053; 81001; 82550; 82553; 82607; 82728; 82746; 83550; 83605; 83735; 83880; 84443; 84484; 85014; 85018; 85025; 85610; 85730; 86850; 86900; 86901; 87631; 93005; 93041; 94760; 96361; 96374; 97161; 99285; G0378

== ENCOUNTER 2022-05-24 07:22 | Emergency (ER) | payer MEDICARE ==
[~2022-05-24] VITALS: Ht 177.8 cm; Wt 114.6 kg
[~2022-05-24 07:22] MED LIST changes: +FERR325T3 PO; +XARE15TA PO
[2022-05-24] MEDS ORDERED: AMLO2.5T3 (07:35)
[2022-05-24] MEDS ORDERED: VITA250T4 PO (07:35)
[2022-05-24] MEDS ORDERED: XARE20TA (07:35)
[2022-05-24 09:20] LABS: BASO % 0.6 % (0.0-1.0); EOS # 0.1 10^3/uL (0.0-0.5); HEMATOCRIT 39.7 % (42.0-52.0); HEMOGLOBIN 12.8 g/dl (13.5-17.5); LYMPH # 1.4 10^3/uL (1.5-5.0); LYMPH % 20.6 % (24.0-44.0); MEAN CORPUSCULAR HEMOGLOBIN 29.5 pg (27.0-33.0); MEAN CORPUSCULAR HGB CONC 32.2 g/dl (32.0-36.5); MEAN CORPUSCULAR VOLUME 91.5 fl (80.0-96.0); MONO # 0.6 10^3/uL (0.0-0.8); MONO % 8.2 % (2.0-8.0); NEUTROPHILS # 4.7 10^3/uL (1.5-8.5); PLATELET COUNT, AUTOMATED 178 10^3/uL (150-450); RED BLOOD COUNT 4.34 10^6/uL (4.30-6.10); WHITE BLOOD COUNT 6.9 10^3/uL (4.0-10.0)
[2022-05-24 09:33] LABS: CALCIUM LEVEL 8.7 MG/DL (8.3-10.6); CREATININE FOR GFR 1.65 MG/DL (0.70-1.30); GLOMERULAR FILTRATION RATE 42.4 (>35); POTASSIUM SERUM 4.7 MMOL/L (3.5-5.1)
[2022-05-24 09:34] LABS: INR 1.1; PROTHROMBIN TIME 14.4 SECONDS (12.5-14.5)
[2022-05-24 09:35] LABS: PARTIAL THROMBOPLASTIN TIME 25.2 SECONDS (24.8-34.2)
[2022-05-24 11:59] VITALS: BP 167/79
== END 2022-05-24 12:13 | disposition home or self-care (01) ==
LOC: M ED 07:22
DX: R04.0 Epistaxis (principal); N18.9 Chronic kidney disease, unspecified; I10 Essential (primary) hypertension; E78.5 Hyperlipidemia, unspecified; F10.10 Alcohol abuse, uncomplicated; Z86.79 Personal history of other diseases of the circulatory system; Z88.6 Allergy status to analgesic agent; Z95.0 Presence of cardiac pacemaker; Z79.01 Long term (current) use of anticoagulants; Z79.810 Long term (current) use of selective estrogen receptor modulators (SERMs); Z79.899 Other long term (current) drug therapy

== ENCOUNTER → 2022-06-02 | Outpatient (CLI) | payer MEDICARE ==
[~2022-06-02] MED LIST changes: +AMLO2.5T3; +VITA250T4 PO; +XARE20TA
[2022-06-02 14:12] LABS: CHOLESTEROL RISK RATIO 2.38 (<5); LDL CHOLESTEROL 60.4 MG/DL (<100)
== END ==
LOC: M PLALAB 10:38
PROVIDERS: ATTEND Internal Medicine
DX: E78.5 Hyperlipidemia, unspecified (principal)

== ENCOUNTER → 2023-03-09 | Outpatient (REF) | payer MEDICARE ==
[2023-03-09 21:43] LABS: ALBUMIN 3.7 G/DL (3.2-5.2); BILIRUBIN,TOTAL 0.8 MG/DL (0.3-1.2); CHOLESTEROL RISK RATIO 3.07 (<5); CREATININE FOR GFR 1.67 MG/DL (0.70-1.30); GLOMERULAR FILTRATION RATE 41.7 (>35); HDL CHOLESTEROL 40.6 MG/DL (>40); LDL CHOLESTEROL 66.8 MG/DL (<100); NON-HDL-C 84.4 MG/DL; POTASSIUM SERUM 4.8 MMOL/L (3.5-5.1); TOTAL PROTEIN 6.7 G/DL (5.7-8.2)
== END ==
LOC: M LAB REF 21:11
PROVIDERS: ATTEND Internal Medicine
DX: I10 Essential (primary) hypertension (principal); E78.5 Hyperlipidemia, unspecified

== ENCOUNTER → 2023-04-11 | Outpatient (REF) | payer OTHER, MEDICARE ==
[~2023-04-11] MED LIST changes: -B-COTAB4 PO; +VITA1TAB78 PO
[2023-04-12 17:57] LABS: CREATININE,RANDOM URINE 207.1 MG/DL
[2023-04-12 17:59] LABS: TOTAL PROTEIN,RANDOM URINE 141.5 MG/DL (0.0-14.0)
== END ==
LOC: M LAB REF 16:53
PROVIDERS: ATTEND Internal Medicine Nephrology
DX: N18.32 Chronic kidney disease, stage 3b (principal)